=== PATIENT | male | born 1965 | race African-American/Black ===

== ENCOUNTER 2024-09-01 12:01 | Outpatient (REF) | payer MEDICAID, SELFPAY ==
--- OUTSIDE RECORDS SUMMARY | 2024-09-01 12:58 | XMS_ITS | Encounter Summary ---
Author Organization [facility] Address [address] [place] [id number] Care Team Providers Care School Community Relations Coordinator Name Role Phone Cassandra Vega MD Primary Care Provider + Encounter Details Date Type Department Care Team (Latest Contact Info) Description 09/01/2024 Travel Social History Tobacco Use Types Packs/Day Years Used Date Smoking Tobacco: Never Passive Smoke Exposure: Never Smokeless Tobacco: Never Sex and Gender Information Value Date Recorded Sex Assigned at Male 08/27/2024 11:49 AM EDT Legal Sex Male 11:25 AM EDT Gender Identity Male 08/27/2024 11:49 AM EDT Sexual Orientation Straight 09/01/2024 9: 23 AM EDT documented as of this encounter Plan of Treatment Upcoming Encounters Date Type Department Care Team (Late st Contact Info) Description 10/02/2024 10:45 AM EDT Office Visit [facility] [address] [place] [address] Cassandra Vega MD [address] [place] [address] documented as of this encounter Visit Diagnoses Not on filedocumented in this encounter Care Teams School Community Relations Coordinator Relationship Specialty Start Date End Date Cassandra Vega MD [address] [place] [id number] PCP - General Internal Medicine 09/01/24 documented as of this encounter
--- OUTSIDE RECORDS SUMMARY | 2024-09-01 12:58 | XMS_ITS | Clinical Summary ---
Author Organization [facility] Address [address] [place] [address] Care Team Providers Care Digital Research Analyst Name Role Phone Thi Simi Fracnes NP Primary Care Provider [phone] Source Comments PLEASE NOTE, if this patient is a minor, it may be UNLAWFUL to discuss sensitive information that is contained in these records (such as FAMILY PLANNING, MENTAL HEALTH or SUBSTANCE ABUSE) with the minor patient's parent or other person without the patient's specific authorization.[facility] Allergies No known active allergies Medications metFORMIN (GLUCOPHAGE) 500 mg tablet Take 1 Tablet by mouth 2 (two) times daily with a meal 60 Tablet 11 5 Active lidocaine (LIDODERM) 5 % patch Place 1 Patch onto the skin daily 5 Active acetaminophen (TYLENOL) 325 mg tablet Take 650 mg by mouth every 6 (six) hours as needed 5 Active calcium carbonate (TUMS) 500 mg chewable tabletIndicatio ns:Gastroesopha geal reflux disease without esophagitis Chew and swallow 1 Tablet by mouth daily 5 Active fluticasone (FLONASE) 50 mcg/actuation nasal sprayIndication s:Hearing difficulty of both ears Place 1 [place] in both nostrils 2 (two) times daily 16 g 5 5 Active omeprazole (PRILOSEC) [address] capsuleIndicati ons:Gastroesoph ageal reflux disease without esophagitis Take 1 Capsule by mouth every morning before breakfast Pran 1 kapsil nan bouch megank aldair givens. Andres rflu 30 Capsule 5 5 Active melatonin 5 mg tab Take 1 Tablet by mouth every evening. 30 Tablet 11 5 Active lisinopriL-hydr ochlorothiazide 10-12.5 mg per tablet Take 1 Tablet by mouth once daily. 30 Tablet 11 5 Active rosuvastatin (CRESTOR) 10 mg tablet Take 1 Tablet by mouth nightly at bedtime. 30 Tablet 11 5 Active rifAMPin (RIFADIN) 300 mg capsule Take 1 Capsule by mouth once daily. 60 Capsule 3 5 Active lisinopriL 10 mg tablet Take 1 Tablet by mouth once daily 30 Tablet 11 5 08/08/19 25 Discontinu ed(Cancell ed) rosuvastatin (CRESTOR) 10 mg tabletIndicatio ns:Type 2 diabetes mellitus without complication, without long-term current use of insulin ([facility]),Stage 2 chronic kidney disease TAKE 1 TABLET BY MOUTH AT BEDTIME 30 Tablet 5 08/08/19 25 Discontinu ed(Reorder (E-Cancel Not Sent)) Active Problems Problem Noted Date Diagnosed Date Primary insomnia 08/07/2024 Assessment & Plan (08/07/2024 11:20 AM EDT): Likely due to fdc setting, will trial melatonin but noise/light may not be modifiable 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 Will evaluate further with labs below, continue to discuss. Orders: BLOOD COUNT COMPLETE AUTO&AUTO DIFRNTL WBC; Future TSH W/RFLX FREE T4; Future + quant gold, - CXR 05/05/24 --> needs tx 025 Assessment & Plan (08/07/2024 11:18 AM EDT): Start rifampin 600mg daily for 4 months Assessment & Plan (06/20/2024 1:27 PM EDT): Lab Results Component Value Date QUANTIFERON POSITIVE (A) 04/08/2024 05/05/2024 12:08 PM EDT No radiographic findings to suggest active tuberculosis. Discussed CXR as above. No active sx today; will hold off on treating until get other meds established with adherence. Assessment & Plan (05/04/2024 3:13 PM EDT): Lab Results Component Value Date QUANTIFERON POSITIVE (A) 04/08/2024 Lab not previously discussed with pt. Sx screen as above w/ no acute concerns for active dz. No prior tx of Tb or knowledge of + screening tests. CXR req given to pt today with instructions to obtain at [facility]. Review further after CXR results known. Orders: RADIOLOGIC EXAM CHEST 2 VIEWS Hearing difficulty of both ears 05/02/2024 Assessment & Plan (05/04/2024 3:13 PM EDT): More left than right. Has been present for about a year. Never evaluated to his knowledge. Effusion bilaterally, more L than R. Trial flonase for ET dysfunction. Audiology referral. Blurry vision, bilateral 05/02/2024 Assessment & Plan (05/04/2024 3:13 PM EDT): Wore glasses for correction both distance and near, last had a pair about 2 years ago. Had previous injury to L eye in 2017. CM to assist with referral. Stage 2 chronic kidney disease 04/14/2024 Assessment & Plan (06/20/2024 1:27 PM EDT): Will obtain labs today, initiate treatment with statin; provided pt with pill box to support daily adherence. Orders: rosuvastatin (CRESTOR) 10 mg tablet; Take 1 Tablet by mouth nightly at bedtime for 30 days Pran 1 tablet cliff nelson 30 kim, andres kolestewol COMPREHENSIVE METABOLIC PANEL Assessment & Plan (05/04/2024 3:13 PM EDT): Will need labs at next visit. Consider imaging. Orders: COMPREHENSIVE METABOLIC PANEL; Future Assessment & Plan (04/14/2024 2:03 PM EST): Could be related to a combo of DM and HTN. Avoid nephrotoxic meds such as ibuprofen--start lisinopril which might ultimately be renoprotective. UA ordered. Consider renal US. F/u at [facility]. Type 2 diabetes mellitus wit hout complication, without long-term current use of insulin ([facility]) 04/14/2024 Assessment & Plan (06/20/2024 1:27 PM EDT): Pt supposed to be on metformin, currently taking it PRN pain. Counseled pt extensively regarding use of medication and indication; reprinted instructions for medication in [place] [facility] cre[facility] and provided pt with pill box to support daily adherence. Assessment & Plan (05/02/2024 12:15 PM EDT): Unclear if pt is taking metformin, advised to bring pills to clinic on 05/12. Assessment & Plan (04/14/2024 2:04 PM EST): FS essentially at target but would likely benefit from metformin. Low dose sent. Microalbumin ordered. Can f/u for further management at [facility]. Neck pain on right side 04/14/2024 Assessment & Plan (04/14/2024 2:10 PM EST): Possibly a pulled muscle vs muscle strain. Activity as tolerated, PRN tylenol Primary hypertension 04/07/2024 Assessment & Plan (08/07/2024 11:18 AM EDT): Given persistent HTN will change lisinopril to combo lisinopril+HCTZ, titrate as needed, f/u in 4 weeks Assessment & Plan (06/20/2024 1:27 PM EDT): Last 3 BP Readings: Date: BP: 06/16/2024 136/84 05/02/2024 144/87 04/14/2024 142/85 Taking lisinopril daily as advised, measuring BP at home with values: 120-155/80-91. Continue to monitor. Assessment & Plan (05/04/2024 3:13 PM EDT): Consistent with meds, refer to [facility] community care van today for BP cuff and further discussion. Consider med increase at upcoming appt 05/12, needs labs. Orders: COMPREHENSIVE METABOLIC PANEL; Future Assessment & Plan (04/14/2024 1:57 PM EST): Will treat with lisinopril 10 (may be renoprotective even with GFR 57 now) but would be reasonable to check CMP again in 2 weeks Assessment & Plan (04/07/2024 1:59 PM EST): BP borderline high, could be related to stressful setting here. Can recheck tomorrow at [facility] and again next week here. Will get routine labs Sheltered homelessness 04/07/2024 Assessment & Plan (06/20/2024 1:27 PM EDT): Continues in [place]. Transportation provided to clinic today by fdc. Assessment & Plan (05/04/2024 3:13 PM EDT): Homelessness for this patient is a strong social determinant of health and affecting current presentation and treatment decisions as outlined in this note. Assessment & Plan (04/07/2024 2:00 PM EST): Staying at a fdc in [place] which is a barrier to care GERD (gastroesophageal reflux disease) Assessment & Plan (06/20/2024 1:27 PM EDT): Never got tums. Food choice limited by fdc food. Previously tested for h. Pylori and negative (04/08/24). Will initiate treatment with omeprazole today, given instructions on use 15 min before first meal of the day. Anti-acid diet/lifestyle modifications reviewed: dietary guidance includes avoiding fatty/spicy foods, large/late meals, alcohol, tobacco, caffeine, OJ, pasta sauces, chocolates, and mints; lifestyle guidance includes maintaining a healthy weight, avoid eating within 1-2 hours of bedtime, elevate head at night. Reasons to RTC reviewed. Consider referral for EGD at f/u. Assessment & Plan (05/04/2024 3:13 PM EDT): Continues with some pain, fatigue feeling. Sometimes takes tums from ER. Recalls taking ivermectin, albendazole on 04/14/24. Advised to keep journal of pain to review 05/12. 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 F/u at [facility] Assessment & Plan (04/07/2024 2:01 PM EST): Will check h pylori test, if negative consider empiric treatment for GERD Resolved Problems Problem Noted Date Diagnosed Date Resolved Date Chronic left shoulder pain 04/07/2024 0 04/14/2024 Assessment & Plan (04/07/2024 2:00 PM EST): Symptoms and exam consistent with rotator cuff injury. Longterm setting in [place] makes PT impractical. I suggested he stretch and exercise on his own as best he can. PRN tylenol (avoid ibuprofen due to GI symptoms). F/u next week Encounters Date Type Department Care Team Description 08/07/2024 10:00 AM EDT Office Visit [address] [phone] Carlos Herrera MD 08/07/2024 Interim Notes [address] [phone] Gricelda Atkins, Nut Sorter 08/01/2024 Interim Notes [address] [phone] Gricelda Atkins, Nut Sorter 07/11/2024 Interim Notes [address] [phone] Alta Gomez 06/16/2024 9:30 AM EDT Office Visit [address] [phone] Simi Ness NP from Last 3 Months Immunizations Immunization Administration Dates Next Due PNEUMOCOCCAL CONJUGATE PCV 20 (Prevnar 20) 08/07 TDAP 08/07/2024 ZOSTER VACCINE, RECOMBINANT (SHINGRIX) Social History Tobacco Use Types Packs/Day Years Used Date Smoking Tobacco: Never Passive Smoke Exposure: Never Smokeless Tobacco: Never Tobacco Cessation:Counseling Given: Not Answered Sex and Gender Information Value Date Recorded Sex Assigned at Male 08/07/2024 8:52 AM PDT Legal Sex Male 10:27 AM PST Gender Identity Male 08/07/2024 8:52 AM PDT Sexual Orientation Not on file Last Filed Vital Signs Vital Sign Reading Time Taken Comments Blood Pressure 155/90 08/07/2024 10:38 AM EDT Pulse 57 08/07/2024 10:38 AM EDT Temperature 36.4 C (97.6 F) 08/07/2024 10:38 AM EDT Respiratory Rate 16 08/07/2024 10:38 AM EDT Oxygen Saturation 98% 08/07/2024 10:38 AM EDT Inhaled Oxygen Concentration - - Weight 88 kg (194 lb) 08/07/2024 10:38 AM EDT Height 168.9 cm (5' 6.5 ) 08/07/2024 10:38 AM ED T Body Mass Index 30.84 08/07/2024 10:38 AM EDT Plan of Treatment Upcoming Encounters Date Type Department Care Team (Late st Contact Info) Description 09/08/2024 3:00 PM EDT Office Visit [address] [phone] Simi Ness NP [address] [place] [id number] Health Maintenance Due Date Last Done Comments Dental Examination 1965 Diabetes Foot Exam [address]in[address] Colonography 2009 Colonoscopy 2009 Fecal DNA 2009 Flexible Sigmoidoscopy 2009 [id number] ( season) 2023 Alcohol and Drug Screen 02/13/2024 Imm-Zoster, Recombinant (2 o f 2) 10/02/2024 08/07/2024 Imm-Influenza (#1) 2024 Hemoglobin A1c 12/17/2024 06/16/2024, 04/08/2024 Lipid Screening 04/08/2025 04/08/2024 Urine Albumin Creatinine Ratio Screening 04/15/2025 04/15/2024 Colorectal Cancer Screening 06/16/2025 FIT/gFOBT 06/16/2025 06/16/2024 Serum Creatinine 06/16/2025 06/16/2024, 04/08/2024 Anxiety Screening 08/07/2025 08/07/2024 Tobacco Screening 08/07/2025 08/07/2024 Imm-DTaP/Tdap/Td (2 - Td or Tdap) 08/07/2034 08/07/2024 HIV Screening Completed 04/08/2024 Hepatitis B Screening Completed 04/08/2024 Hepatitis C Screening Completed 04/08/2024 Depression Annual Screen Completed 06/16/2024 Imm-Pneumococcal 50+ Completed 08/07/2024 Imm-Hepatitis A Discontinued Imm-Hepatitis B Aged Out No longer el igible based on patient's age to complete this topic Procedures Procedure Name Priority Date/Time Associated Diagnosis Comments HEMOGLOBIN GLYCOSYLATED A1C Routine 06/16/2024 12:40 PM EDT Type 2 diabetes mellitus without complication, without long-term current use of insulin ([facility]) BLOOD COUNT COMPLETE AUTO&AUTO DIFRNTL WBC Routine 06/16/2024 12:40 PM EDT Other fatigue TSH W/RFLX FREE T4 Routine 06/16/2024 12 :40 PM EDT Other fatigue COMPREHENSIVE METABOLIC PANEL Routine 06/16/2024 12:40 PM EDT Primary hypertension Stage 2 chronic kidney disease FECAL GLOBIN BY IMMUNOCHEM (MEDICARE) Routine 06/16/2024 12:10 PM EDT Routine health maintenance MICROALBUMIN/CREATINI NE RATIO, URINE, RANDOM Routine 04/15/2024 3:22 PM EST Type 2 diabetes mellitus without complication, without long-term current use of insulin ([facility]) HIV 1/2 AG & AB W/RFLX (4TH GEN) Routine 04/08/2024 9:32 AM EST Encounter for screening for HIV HEPATITIS B SURFACE AG, EIA WITH REFLEX CONFIRM Routine 04/08/2024 9:32 AM EST Encounter for screening for other viral diseases HEPATITIS C AB W/RFLX HCV RNA, QT, RT PCR Routine 04/08/2024 9:32 AM EST Encounter for screening for other viral diseases LIPID PANEL Routine 04/08/2024 9:32 AM EST Primary hypertension from Last 3 Months or Most Recently Relevant to Health Maintenance Results * TSH W/RFLX FREE T4 (06/16/2024 12:40 PM EDT) TSH W/REFLEX TO FT4 0.87 0.40 - 4.50 mIU/L [facility] Blood Blood / Unknown 06/16/2024 1 2:40 PM EDT 06/17/2024 4:46 AM EDT us Simi Ness NP LAB - BLOOD DRAW Edited Reena gamez - Final [employer] [address] [place] [address], [facility] [address] [place] [phone] * CBC with Diff (06/16/2024 12:40 PM EDT) WHITE BLOOD CELL COUNT 6.0 3.8 - 10.8 Thousand/ uL [facility] RED BLOOD CELL COUNT 5.37 4.20 - 5.80 Million/u L [facility] HEMOGLOBIN 15.0 13.2 - 17.1 g/dL [facility] HEMATOCRIT 46.6 38.5 - 50.0 % [facility] MCV 86.8 80.0 - 100.0 fL [facility] MCH 27.9 27.0 - 33.0 pg [facility] MCHC 32.2 32.0 - 36.0 g/dL [facility] Comment: For adults, a slight decrease in the calculated MCHC value (in the range of 30 to 32 g/dL) is most likely not clinically significant; however, it should be interpreted with caution in correlation with other red cell parameters and the patient's clinical condition. RDW 12.8 11.0 - 15.0 % [facility] PLATELET COUNT 194 140 - 400 Thousand/ uL [facility] MPV 12.1 7.5 - 12.5 fL [facility] ABSOLUTE NEUTROPHILS 3,282 1,500 - 7,800 cells/uL [facility] ABSOLUTE LYMPHOCYTES 1,962 850 - 3,900 cells/uL [facility] ABSOLUTE MONOCYTES 624 200 - 950 cells/uL [facility] ABSOLUTE EOSINOPHILS 90 15 - 500 cells/uL [facility] ABSOLUTE BASOPHILS 42 0 - 200 cells/uL [facility] NEUTROPHILS PCT 54.7 % [facility] LYMPHOCYTES 32.7 % [facility] MONOCYTES 10.4 % [facility] [employer] EOSINOPHILS 1.5 % [facility] [employer] BASOPHILS 0.7 % [facility] [employer] [facility] Blood Blood / Unknown 06/16/2024 1 2:40 PM EDT 06/17/2024 4:46 AM EDT Simi Ness NP LAB - BLOOD DRAW Edited Re sult - [facility] [employer] [address] [address], [facility] [address] [place] [address] * (ABNORMAL) Hemoglobin A1C (06/16/2024 12:40 PM EDT) HEMOGLOBIN A1C 6.7(H) <5.7 % [facility] Comment: For someone without known diabetes, a hemoglobin A1c value of 6.5% or greater indicates that they may have diabetes and this should be confirmed with a follow-up test. For someone with known diabetes, a value <7% indicates that their diabetes is well controlled and a value greater than or equal to 7% indicates suboptimal control. A1c targets should be individualized based on duration of diabetes, age, comorbid conditions, and other considerations. Currently, no consensus exists regarding use of hemoglobin A1c for diagnosis of diabetes for children. Blood Blood / Unknown 06/16/2024 1 2:40 PM EDT 06/17/2024 4:46 AM EDT us Simi Ness NP LAB - BLOOD DRAW Edited Re sult - Final [facility] [address] [address], [facility] [address] [place] [address] * (ABNORMAL) Comprehensive Metabolic Panel (06/16/2024 12:40 PM EDT) Pathologist [facility] GLUCOSE 93 65 - 99 mg/dL [facility] Comment: Fasting reference interval UREA NITROGEN (BUN) 11 7 - 25 mg/dL [facility] CREATININE (blood) 1.35(H) 0.70 - 1.30 mg/dL [facility] EGFR 60 > OR = 60 mL/min/1. 73m2 [facility] BUN/CREATININE RATIO 8 6 - 22 (calc) [facility] SODIUM 136 135 - 146 mmol/L [facility] POTASSIUM 4.8 3.5 - 5.3 mmol/L [facility] CHLORIDE 100 98 - 110 mmol/L [facility] CARBON DIOXIDE 27 20 - 32 mmol/L [facility] CALCIUM 9.5 8.6 - 10.3 mg/dL [facility] PROTEIN, TOTAL 7.5 6.1 - 8.1 g/dL [facility] ALBUMIN 4.4 3.6 - 5.1 g/dL [facility] GLOBULIN 3.1 1.9 - 3.7 g/dL (calc) [facility] ALBUMIN/GLOBULI N RATIO 1.4 1.0 - 2.5 (calc) [facility] BILIRUBIN, TOTAL 0.6 0.2 - 1.2 mg/dL [facility] ALKALINE PHOSPHATASE 72 35 - 144 U/L [facility] AST 17 10 - 35 U/L [facility] ALT 22 9 - 46 U/L [facility] Blood Blood / Unknown 06/16/2024 1 2:40 PM EDT 06/17/2024 4:46 AM EDT us Simi Ness FINANCIAL SERVICES SALES REPRESENTATIVE LAB - BLOOD DRAW Final Res ult Performing Organization Address City/[facility]/ZIP Co de Phone Number [facility] [address] [address], [employer] [address] [address] * FECAL GLOBIN BY IMMUNOCHEM. (MEDICARE) (06/16/2024 12:10 PM EDT) FECAL GLOBIN BY IMMUNOCHEMISTRY See Note [facility] Comment: FECAL GLOBIN BY IMMUNOCHEMISTRY Micro Number: [id number] Test Status: Final Specimen Source: Insure () fobt test card Specimen Quality: Adequate Fecal Globin: Not Detected Reference Range: Not Detected Comment: Test results may be invalid as no date of collection was provided. Specimens are stable for 14 days. NOTE: Approved collection includes sample of toilet water adjacent to stool. Other methods of collection such as stool transferred from diaper, bedpan, or commode to toilet water may lead to inaccurate results. Stool Stool specimen / Unknown 06/16/2024 12:10 PM EDT 06/17/2024 9:21 PM EDT us Simi Ness FINANCIAL SERVICES SALES REPRESENTATIVE LAB BODY FLUIDS AND STOOLS AMBULATORY Final Result Performing Organization Address City/[facility]/ZIP Co de Phone Number [facility] [address] [address], [employer] [address] [address] * MICROALBUMIN, RANDOM URINE (W/CREATININE) (04/15/2024 3:22 PM EST) CREATININE, RANDOM URINE 103 20 - 320 mg/dL [facility] MICROALBUMIN 0.3 mg/dL [facility] Comment: Reference Range Not established MICROALBUMIN/CREA TININE RATIO, RANDOM URINE 3 <30 mg/g creat [facility] Comment: The ADA defines abnormalities in albumin excretion as follows: Albuminuria Category Result (mg/g creatinine) Normal to Mildly increased <30 Moderately increased 30-299 Severely increased > OR = 300 The ADA recommends that at least two of three specimens collected within a 3-6 month period be abnormal before considering a patient to be within a diagnostic category. Urine Urine specimen / Unknown 04/15/2024 3:22 PM EST 04/16/2024 3:01 PM EST us Carlos Herrera MD LAB URINE AMBULATORY Final Re sult Performing Organization Address [facility] de Phone Number [facility] [address] [address], [facility] [address] [address] * HEPATITIS C AB W/REFL TO HCV RNA, QN, PCR (04/08/2024 9:32 AM EST) HEPATITIS C ANTIBODY NON-REACT RADHA NON-REACT RADHA [facility] Comment: HCV antibody was non-reactive. There is no laboratory evidence of HCV infection. In most cases, no further action is required. However, if recent HCV exposure is suspected, a test for HCV RNA (test code 21886) is suggested. For additional information please refer to http://education.Captora/faq/AXN18g0 (This link is being provided for informational/ educational purposes only.) Blood Blood / Unknown 04/08/2024 9 :32 AM EST 04/09/2024 12:45 AM EST us Carlos Herrera MD LAB - BLOOD DRAW Edited Resul t - Final Performing Organization Address [facility] Co de Phone Number [facility] [address] [address], [employer] [address] [address] * HIV 1/2 ANTIGEN/ANTIBODY,FOURTH GENERATION W/RFL (04/08/2024 9:32 AM EST) HIV AG/AB, 4TH GEN NON-REAC TIVE NON-REAC TIVE [facility] Comment: HIV-1 antigen and HIV-1/HIV-2 antibodies were not detected. There is no laboratory evidence of HIV infection. PLEASE NOTE: This information has been disclosed to you from records whose confidentiality may be protected by state law. If your state requires such protection, then the state law prohibits you from making any further disclosure of the information without the specific written consent of the person to whom it pertains, or as otherwise permitted by law. A general authorization for the release of medical or other information is NOT sufficient for this purpose. For additional information please refer to http://Wellkeeper.Captora/faq/DJR111 (This link is being provided for informational/ educational purposes only.) The performance of this assay has not been clinically validated in patients less than 2 years old. Blood Blood / Unknown 04/08/2024 9 :32 AM EST 04/09/2024 12:45 AM EST us Carlos Herrera MD LAB - BLOOD DRAW Final Result Performing Organization Address City/State/[facility] Co de Phone Number [facility] [address] [address], [facility] [address] [address] * HEPATITIS B SURFACE ANTIGEN W/REFL CONFIRM (04/08/2024 9:32 AM EST) HEPATITIS B SURFACE ANTIGEN NON-REACT RADHA NON-REACT RADHA [facility] COMMENT [facility] Blood Blood / Unknown 04/08/2024 9 :32 AM EST 04/09/2024 12:45 AM EST Narrative [facility] - 04/14/2024 6:33 PM EST For additional information, please refer to http://Wellkeeper.xoompark.ClearFlow/faq/QXG973 (This link is being provided for informational/ educational purposes only.) us Carlos Herrera MD LAB - BLOOD DRAW Edited Resul t - Final [facility] [address] [address], [facility] [address] [address] * (ABNORMAL) Lipid Panel (04/08/2024 9:32 AM EST) CHOLESTEROL, TOTAL 189 <200 mg/dL [facility] HDL CHOLESTEROL 39(L) > OR = 40 mg/dL [facility] TRIGLYCERIDES 206(H) <150 mg/dL [facility] Comment: If a non-fasting specimen was collected, consider repeat triglyceride testing on a fasting specimen if clinically indicated. Franny et al. J. of Clin. Lipidol. 2015;9:129-169. LDL-CHOLESTEROL 118(H) 99 mg/dL (calc) [facility] Comment: Reference range: <100 Desirable range <100 mg/dL for primary prevention; <70 mg/dL for patients with CHD or diabetic patients with > or = 2 CHD risk factors. LDL-C is now calculated using the Keron-Ana calculation, which is a validated novel method providing better accuracy than the Friedewald equation in the estimation of LDL-C. Keron SS et al. JOHANNA. 2013;310(19): 8134-7375 (http://education.Orthocon/faq/VEW574) CHOL/HDLC RATIO 4.8 <5.0 (calc) [facility] NON-HDL CHOLESTEROL 150(H) <130 mg/dL (calc) [facility] Comment: For patients with diabetes plus 1 major ASCVD risk factor, treating to a non-HDL-C goal of <100 mg/dL (LDL-C of <70 mg/dL) is considered a therapeutic option. Blood Blood / Unknown 04/08/2024 9 :32 AM EST 04/09/2024 12:45 AM EST us Carlos Herrera MD LAB - BLOOD DRAW Final Result Performing Organization Address [facility]/ZIP Co de Phone Number [facility] [facility] [address] [id number], [place] [address] [id number] from Last 3 Months or Most Recently Relevant to Health Maintenance Insurance [facility] Care Teams Digital Research Analyst Relationship Specialty Start Date End Date Simi Ness NP [address] [place] [id number] PCP - General FINANCIAL SERVICES SALES REPRESENTATIVE Nurse Practitioner 06/20/24
[2024-09-01 12:59] LABS: MANUAL DIFF FLAG NO
[2024-09-01 13:10] LABS: Hematocrit 46.3 % (42.0-52.0); Hemoglobin 15.0 g/dl (14.0-18.0); Imm Gran Abs Auto 0.02 X10*3/uL (0.00-0.03); Imm Gran Pct Auto 0.3 % (0.0-0.4); Lymphocytes Absolute Auto 1.8 X10*3/uL (1.2-4.9); Mean Corpuscular HGB Conc 32.4 g/dl (31.0-36.0); Mean Corpuscular Hemoglobin 27.8 pg (27.0-33.0); Mean Corpuscular Volume 85.9 fL (80.0-98.0); NRBC Abs Auto 0.020 X10*3/uL (0.0-0.012); NRBC Pct Auto 0.3 /100WBC (0.0-0.2); Platelet Count 163 X10*3/uL (160-400); Red Blood Count 5.39 X10*6/uL (4.60-5.80); White Blood Count 5.7 X10*3/uL (4.8-10.8)
[2024-09-01 13:22] LABS: Hemoglobin A1C 206.7885 umol/L; Total Hemoglobin (HGBA1C) 3880.9457 umol/L
[2024-09-01 13:35] LABS: Alanine Aminotransferase 39 U/L (0-40); Albumin Level 4.8 g/dL (3.5-5.0); Alkaline Phosphatase 92 U/L (39-117); Anion Gap 12 (12-20); Aspartate Amino Transferase 23 U/L (5-37); Blood Urea Nitrogen 15 mg/dL (9-16); Calcium 8.9 mg/dL (8.4-10.2); Carbon Dioxide 29 mmol/L (22-29); Chloride 105 mmol/L (96-108); Estimated Glomerular Filt Rate 53; Potassium 4.1 mmol/L (3.3-5.1); Sodium 142 mmol/L (135-145); Total Protein 7.8 g/dL (6.5-8.0)
[2024-09-01 14:39] LABS: Microalbum/Creatinine Ratio Ur 3.6 ug/mg cr (<30)
[2024-09-02 08:23] LABS: Syphilis Screen Nonreactive (Nonreactive)
[2024-09-02 08:42] LABS: HBS Num1 0.58 mIU/mL (0-7.99); HBc Num1 0.18 S/CO (0.00-0.79); HBsAGNum1 0.40 S/CO (0.00-0.99); Hepatitis A Antibody IgM 0.31 Index (0-0.79); Hepatitis B Surface Antigen Negative (Negative); ~HepC Num1 0.17 S/CO (0.00-0.79); ~Hepatitis A Antibody IgM Nonreactive (Nonreactive); ~Hepatitis B Surface Antibody NONREACTIVE (Nonreactive); ~Hepatitis C Antibody Nonreactive (Nonreactive)
== END 2024-09-01 12:02 | disposition home or self-care (01) ==
LOC: HO.HHCL 12:01
PROVIDERS: Visit Provider Internal Medicine
DX: E11.9 Type 2 diabetes mellitus without complications (principal); I10 Essential (primary) hypertension; H54.3 Unqualified visual loss, both eyes
CPT/HCPCS: 36415; 80053; 82043; 82570; 83036; 84443; 85025; 86704; 86706; 86709; 86780; 86803; 87340

== ENCOUNTER 2024-12-05 11:48 | Outpatient (REF) | payer MEDICAID, SELFPAY ==
--- OUTSIDE RECORDS SUMMARY | 2024-12-05 10:45 | XMS_ITS | Encounter Summary ---
Author Organization [employer] Address [address] [facility] [address] [place] [address] Care Team Providers Care Drilling Manager Name Role Phone Cassandra Vega MD Primary Care Provider + Reason for Visit * Reason Comments Establish Care Encounter Details Date Type Department Care Team (Latest Contact Info) Description 12/05/2024 10:45 AM EDT Office Visit [facility] [address] [place] [address] Cassandra Vega MD [address] [place] [address] Primary hypertension (Primary Dx); Type 2 diabetes mellitus without complication, without long-term current use of insulin (HCC); Diabetic polyneuropathy associated with type 2 diabetes mellitus (HCC); Class 1 obesity due to excess calories with serious comorbidity and body mass index (BMI) of 30.0 to 30.9 in adult; Latent tuberculosis; Tinea pedis of left foot; Exercise counseling; Dietary counseling; Encounter for immunization Social History Tobacco Use Types Packs/Day Years Used Date Smoking Tobacco: Never Passive Smoke Exposure: Never Smokeless Tobacco: Never Tobacco Cessation:Counseling Given: Not Answered Alcohol Use Standard Drinks/Week Comments Never 0 (1 standard drink = 0.6 oz pur e alcohol) Depression Answer Date Recorded Patient Health Questionnaire-9 Score 2 12/05/2024 Patient Health Questionnaire-9 Score 2 12/05/2024 Last PHQ-9: Questionnaire Data Not on file 1 Housing Stability Answer Date Recorded What is your housing situation today? I have anjana kim 12/05/[address] you li ve. Do you have problems with any of the following? None of the above 12/05/2024 Food Insecurity Answer Date Recorded Within the past 12 months, y ou worried that your food would run out before you got money to buy more: Never True 12/05/2024 Within the past 12 months,th e food you bought just didn't last and you didn't have enough money to get more: Never True Transportation Answer Date Recorded In the past 12 months, has l ack of transportation kept you from medical appts, meetings, work or from getting things needed for daily living? No 12/05/2024 Utilities Answer Date Recorded In the past 12 months, has t he electric, gas, oil or water company threatened to shut off services in your home? No 12/05/2024 Depression Answer Date Recorded Patient Health Questionnaire-2 Score 2 12/05/2024 Internet Access Answer Date Recorded Internet Access Q1 Yes 12/05/2024 Internet Access Q2 Not on file 12/05/2024 Sex and Gender Information Value Date Recorded Sex Assigned at Male 08/27/2024 11:49 AM EDT Legal Sex Male 11:25 AM EDT Gender Identity Male 08/27/2024 11:49 AM EDT Sexual Orientation Straight 09/01/2024 9: 23 AM EDT documented as of this encounter Last Filed Vital Signs Vital Sign Reading Time Taken Comments Blood Pressure 138/88 12/05/2024 10:56 AM EDT Pulse 86 12/05/2024 10:56 AM EDT Temperature 36.2 C (97.1 F) 12/05/2024 10:56 AM EDT Respiratory Rate 20 12/05/2024 10:56 AM EDT Oxygen Saturation - - Inhaled Oxygen Concentration - - Weight 86.3 kg (190 lb 3.2 oz) 12/05/2024 10:56 AM EDT Height 168 cm (5' 6.14 ) 12/05/2024 10:56 AM EDT Body Mass Index 30.57 12/05/2024 10:56 AM EDT documented in this encounter Functional Status * Over the past 2 weeks, how often have you been bothered by any of the following problems? Question Answer Date of Assessment Author Patient Health Questionnaire-2 Score 2 12/05/2024 10:57 AM EDT Lalitha Joy MA * Little interest or pleasure in doing things Answer Date of Assessment Author Several days 12/05/2024 10:57 AM EDT Lalitha Farias MA * Feeling down, depressed, or hopeless Answer Date of Assessment Author Several days 12/05/2024 10:57 AM EDT Lalitha Farias MA * Trouble falling or staying asleep, or sleeping too much Answer Date of Assessment Author Not at all 12/05/2024 10:57 AM EDT Lalitha Farias MA * Feeling tired or having little energy Answer Date of Assessment Author Not at all 12/05/2024 10:57 AM EDT Lalitha Farias MA * Poor appetite or overeating Answer Date of Assessment Author Not at all 12/05/2024 10:57 AM EDT Lalitha Farias MA * Feeling bad about yourself - or that you are a failure or have let yourself or your family down Answer Date of Assessment Author Not at all 12/05/2024 10:57 AM EDT Lalitha Farias MA * Trouble concentrating on things, such as reading the newspaper or watching television Answer Date of Assessment Author Not at all 12/05/2024 10:57 AM ANNALISAT Lalitha Farias MA * Moving or speaking so slowly that other people could have noticed? Or the opposite - being so fidgety or restless that you have been moving around a lot more than usual. Answer Date of Assessment Author Not at all 12/05/2024 10:57 AM EDLalitha Barajas MA * Thoughts that you would be better off or hurting yourself in some way Answer Date of Assessment Author Not at all 12/05/2024 10:57 AM EDT Lalitha Farias MA * Patient Health Questionnaire-9 Score Answer Date of Assessment Author 2 12/05/2024 10:57 AM Lalitha Rivera MA * How difficult have these problems made it for you to do your work, take care of things at home, or get along with other people? Answer Date of Assessment Author Not difficult at all 12/05/2024 10:57 AM EDT Adebayo riguez-Sher, Lalitha, [place] * Over the last 2 weeks, how often have you been bothered by any of the following problems? Question Answer Date of Assessment Author Feeling nervous, anxious, or on edge 0 12/05/2024 10:57 AM EDT Lalitha Estrada MA Not being able to stop or control worrying 0 12/05/2024 10:57 AM EDT Lalitha Estrada MA Worrying too much about different things 0 12/05/2024 10:57 AM EDT Lalitha Estrada MA Trouble relaxing 0 12/05/2024 10:57 AM EDT Lalitha Estrada MA Being so restless that it is hard to sit still 0 12/05/2024 10:57 AM EDT Lalitha Estrada MA Becoming easily annoyed or irritable 0 12/05/2024 10:57 AM EDT Lalitha Estrada MA Feeling afraid as if something awful might happen 0 12/05/2024 10:57 AM EDT Lalitha Sanchez MA HAIR-7 Total Score 0 12/05/2024 10:57 AM EDT Lalitha Estrada MA documented as of this encounter Miscellaneous Notes * Patient Education Note - Cassandra Vega MD - 12/05/2024 3:33 PM EDT Images from the original note were not included. Patient Education Table of Contents Paola hood (Ip?tansyon) cliff astudillo: Sa valorie pozo (High Blood Pressure (Hypertension) in Adults: What to Know) To view videos and all your education online visit, [email or web address] or scan this QR code with your smartphone. Access to this content will in one year. Tansyelva wo (Ip?tansyon) cliff baldwinmoun: Sa valorie pozo High Blood Pressure (Hypertension) in Adults: What to Know Rodrigosyon wo (ip?tansyon) se l?? f?s patton ponpe nan at?? timoun ou an tw?? f?. Tansyon wo (Ip?tansyon)nan granmoun: Sa ou dwe konnen At?? yo se veso sangen ki pran patton depi nan k?? w andres mennen li nan tout k?? ou. Si ou gen tansyon wo, k?? ou oblije travay pi r?d andres ponpe patton. Sa ka lak?z at?? yo esha etwat oswar?d. Tansyon wo ka lak?z yon rodney kadyak, ensifizans kadyak, yon konjesyon serebral, oswa menm maladi jarrod. Kelin ki lak?z li? Nan s?ten ka, yo pa konnen k?z la. Men, gen anpil pwobl?m sante ki ka lak?z tansyon wo. Kelin malone ogmante risk la? Ou ka gen plis chans andres gen tansyon wo si: Ou pi granmoun. Ou gen yon istwa de: ? Maladi k?. ? Kolestew?l wo. ? Maladi jarrod. Ou gen anpil estr?s nan nelli w. Yon moun nan fanmi ou gen tansyon wo. Ou gen apne d?mi. Ou gen tw?p pwa. Ou ka gen plis chans andres gen tansyon wo akshat si: Ou fimen. Ou pa jwenn ase egz?sis. Ou manje epi ou bw?? tw?p gr?s, sik, kalori, oswa s?l (sody?m). Ou bw?? tw?p alk?l. Kelin siy oswa sent?m yo ye? Nan k?k ka, ou ka pa gen sent?m. Men, plis tansyon ou wo, se plis chans ou genyen andres gen sent?m yo. Sa yo gen demi: Malt?t. Batman k?? rapid oswa inegal. Mis v?tij. Chanjman nan vizyon ou. Nen senyen. Doul?? nan pwatrin ak sansasyon souf kout. Vomi oswa mis tankou w ka vomi. Lindsay yo f?? dyagnostik li? Yo ka dyagnostike w dapre istwa sante w, sent?m ou yo, ak lekti tansyon w. Tansyon ki an sante andres pif granmoun se <120/80. Premye chif la se presyon ki pi wo ki rive nan at?? ou yo l?? k?? ou bat. The second number is the lowest pressure in your arteries when your heart rests between beats. Si tansyon ou pi wo pase 130/80, yo ka di ou gen tansyon wo. Si tansyon ou wo pandan yon vizit, yo ka mande w andres: ? Retounen yon l?t kim andres yo tcheke tansyon ou ank?. ? Siveye tansyon ou lakay ou pandan 1 deniz?n oswa pi lontan. Si ou gen tansyon wo, ou ka f?? t?s patton oswa t?s imajri. Lindsay yo trete li? Ou ka bezwen andres: Chanje rejim alimant?? ou. Pran medikaman andres bese tansyon ou. F?? plis egz?sis. Tansyon sib ou a ap depann de laj ou ak kijan ou an sante. Swiv enstriksyon sa yo lakay ou: Medikaman Pran medikaman w yo s?lman adrien yo endike w la. Piga sote d?z medikaman andres tansyon yo. Di founis?? swen sante ou si ou gen nenp?t ef?? segond?? ak medikaman an. Manje ak bwason Manje bagay ki bon andres k?? ou. Ou ka vle eseye rejim alimant?? Apw?ch Alimant?? andres Sispann Ip?tansyon (DASH) la. Andres w manje fason sa a: ? Manje anpil fwi ak legim. Eseye ranpli mwatye asy?t ou av?k fwi ak legim. ? Ranpli apepr?? yon ka asy?t ou av?k andrey antye. Andrey rios yo enkli: ? Pasta ble antye. ? Diri bren. ? Pen grenn antye. ? Manje oswa bw?? pwodui abaz l?t ki gen yon ti kantite gr?s, tankou l?t ekreme oswa yogout ki gen yon ti kantite gr?s. ? Evite moso vyann ki gen anpil gr?s, vyann manje midi, ak b?t volay ki gen po. ? Ranpli apepr?? yon ka nan asy?t ou a ak pwoteyin ki pa gen anpil gr?s (m?g), tankou: ? Pwason. ? Poul patton po. ? Pwa. ? Ze. ? Tofou. Evite pwodui alimant?? transf?me yo. Sa yo gen tandans gen plis kantite sody?m, sik ak gr?s yo ajoute. Eseye manje mwens pase 1,500 mg s?l pa kim. Piga bw?? alk?l si: ? Pwofesyon?l swen sante w di w andres pa bw?. ? Ou ansent, ou ka ansent oswa ou planifye andres w esha ansent. Si ou bw?? alk?l: ? Limite kantite ou pran andres li nan: ? 0?1 v?? yon kim si w se fi. ? 0?2 v?? pa kim si w se gason. ? Konnen ki kantite alk?l ki nan bwason ou. Ozetazini, yon v?? se yon bout?y by?? 12 ons (355 mL), yon v?? 5 ons diven (148 mL), oswa yon v?? 1? ons lik?? f?? (44 mL). M?dvi Kenbe yon pwa ki bon andres sante. Mande t?t ou ki pwa ki bon andres ou. Eseye f?? 90 a 150 minit egz?sis pa deniz?n ki f?? k?? w bat pi vit. Sa yo rele egz?sis ayerobik. Sa ka gen demi: ? Mache. ? Natasyon. ? Lazarus bisikl?t. F?? egz?sis andres ranf?se misk ou yo pandan 30 minit omwen 3 kim pa deniz?n, tankou: ? Pilat. ? Leve pwa. Enstriksyon jeneral Pa fimen, vape, ni itilize nikotin oswa tabak. Tcheke tansyon ou lakay ou adrien yo di w la. Zarina nan tout vizit swivi yo. Founis?? w la ap vle tcheke si tansyon w ap desann. Kontakte yon pwofesyon?l swen sante si: Ou gen t?t f?? mal. Ou mis v?tij. Ou gen chanjman nan vizyon ou. Ch?christophe ?d touswit si: Ou gen doul?? nan pwatrin, nan do, oswa nan vant. Ou gen pwobl?m andres respire. Ou endispoze. Ou gen nenp?t siy estwok. BE FAST se yon mwayen leidy andres sonje siy av?tisman prensipal yo: B - Balance (Ekilib). Sansasyon v?tij, pwobl?m toudenkou andres mache oswa p?t ekilib. E - Eyes (Zye). Pwobl?m andres w?? oswa yon chanjman nan fason ou w?. F - Face (Figi). Febl?s oswa sansasyon angoudisman toudenkou nan figi. Figi a oswa po je a ka tonbesou yon b?. Febl?s oswa p?t sansasyon nan yon bra. Sa rive vit epi souvan elder yon b?? s?lman. S - Speech (Langaj). Pwobl?m toudenkou andres pale, pale ak lang jules, oswa difikilte andres konprann sa moun ap di. T - Time (L?). Li l?? andres rele 911. Ekri a ki l?? sent?m ou yo te k?manse. L?t siy yon estwok kapab: Yon malt?t ki tr?? grav toudenkou patton okenn k?z koni. Mis tankou w ka vomi. Vomi. Sent?m sa yo kapab yon ijans. Rele 911 touswit. Piga rete tann andres w?? si sent?m yo pral dispar?t. Piga kondi andres w mennen t?t ou lopital. Enf?masyon sa yo pa la andres ranplase kons?y pwofesyon?l swen sante ou ba ou. Sonje andres pale elder nenp?t kesyon ou genyen av?k pwofesyon?l swen sante ou. Document Released: 2011-05-05 Document Updated: 2024-07-03 Document Reviewed: 2024-07-03 [employer] Patient Education ? 2024 [employer]. * Patient Education Note - Cassandra Vega MD - 12/05/2024 3:31 PM EDT Images from the original note were not included. Patient Education Table of Contents Dyab?t Sikre Tip 2, Swen P?son?l, Adilt (Type 2 Diabetes Mellitus, Self-Care, Adult) To view videos and all your education online visit, [email or web address] or scan this QR code with your smartphone. Access to this content will in one year. Dyab?t Sikre Tip 2, Swen P?son?l, Adilt Type 2 Diabetes Mellitus, Self-Care, Adult Pran swen t?t ou apre yo te fin detekte ke w genyen dyab?t tip 2 (dyab?t sikre tip 2) vle di kenbe sik nan patton ou (glikoz) elder kontw?l epi gen ekilib nan: Nitrisyon. Egz?sis. Chanjman nan m?dvi. Medikaman oswa ensilin, si sa neses?. Sip?? nan men ekip pwofesyon?l swen sante ou ak l?t moun. Kelin risk yo ye? L?? ou gen dyab?t tip 2, sa ka mete w nan risk andres l?t pwobl?m ki dire lontan (kwonik), tankou maladi k?? ak maladi jarrod. Pwofesyon?l swen sante w ka preskri medikaman andres f?? prevansyon kont konplikasyon dyab?t yo. K?man andres siveye glikoz nan patton ou Tcheke nivo glikoz nan patton ou chak kim, oswa kantite fwa pwofesyon?l swen sante w di ou. F?? verifye nivo A1C (emoglobin A1C) ou de fwa oswa plizy?? fwa pa ane, oswa tout kantite fwa pwofesyon?l swen sante w di ou. Pwofesyon?l swen sante w pral fikse objektif tretman adapte andres ou p?son?lman. Anjeneral, objektif tretman an se andres kenbe nivo glikoz nan patton ki endike anba la a: ? Anvan repa: 80?130 mg/dL (4.4?7.2 mmol/L). ? Apre repa: pi ba ke 180 mg/dL (10 mmol/L). ? Nivo A1C: mwens pase 7%. Lindsay andres johnny ip?glisemi ak ipoglisemi Sent?m ip?glisemi Ip?glisemi, ke yo rele akshat glikoz wo nan patton, rive l?? glikoz nan patton an tw?? wo. Asire w ke ou konnen premye siy ip?glisemi yo, tankou: Ogmantasyon swaf. Grangou. Sansasyon anpil fatig. Bezwen pipi pi souvan pase n?mal. Vizyon twoub. Sent?m ipoglisemi Ipoglisemi, ke yo rele akshat glikoz ba nan patton, rive l?? glikoz nan patton an nan nivo oswa pi ba pase 70 mg/dL (3.9 mmol/L). Medikaman andres dyab?t yo bese glikoz nan patton ou epi yo ka lak?z ipoglisemi. Risk andres gen ipoglisemi ogmante pandan oswa apre ou fin f?? egz?sis fizik, pandan w ap d?mi, pandan ou malad, ak l?? ou sote repa yo oswa l?? w f?? anpil pérez w pa manje (j?n). Li enp?pérez andres w konnen sent?m ipoglisemi yo epi andres trete yo touswit. Toujou genyen yon 15-gram idrat kab?n ki li rapidman av?k ou andres trete glikoz nan patton ki ba. Manm fanmi ak zanmi pw?ch yo dwe konnen sent?m yo akshat epi yo dwe konprann kijan andres trete ipoglisemi, sizoka ou pa kapab trete t?t ou.Sent?m yo ka gen demi: [place]. [place]. Transpire epi mis po w imid. V?tij oswa w mis toudisman. Anvi d?mi. Ogmantasyon vit?s batman k?. Chimerik. Pikotman oswa p?t sansasyon toutotou bouch, l?v, oswa lang. Mike?y ajite. Ipoglisemi grav se l?? nivo glikoz nan patton ou nan 54 mg/dL (3 mmol/L) oswa pi ba. Ipoglisemi ki grav se yon ijans li ye. Piga tann andres w?? si sent?m yo pral dispar?t. Al ch?christophe swenmedikal touswit. Rele s?vis dijans lokal ou (911 Ozetazini). Piga kondi andres w mennen t?t ou lopital. Si ou gen ipoglisemi grav epi ou pa kapab ni manje ni bw?, ou ka bezwen glucagon. Se andres yon manm fanmi w oswa zanmi pw?ch ou aprann kijan andres tcheke glikoz nan patton w epi kijan andres ba ou glucagon. Mande pwofesyon?l swen sante w si w dwe gen yon kit dijans glucagon disponib. Swiv enstriksyon sa yo lakay ou: Medikaman Pran ensilin oswa medikaman andres dyab?t yo preskri yo adrien pwofesyon?l swen sante w di ou. Piga pran p?n ensilin oswa okenn l?t medikaman andres dyab?t yo. Planifye davans andres w ka toujou genyen yo disponib. Si ou itilize ensilin, ajiste d?z ou baze elder nivo aktivite fizik ou ak ki nouriti ou manje. Pwofesyon?l swen sante w pral di w kijan andres w ajiste dozaj ou. Pran medikaman patton preskripsyon ak medikaman elder preskripsyon s?lman adrien pwofesyon?l swen sante w di ou. Manje ak bw?? Sa ou manje ak bw?? afekte glikoz ki nan patton ou ak d?z ensilin ou. F?? bon chwa ki vandana w kontwole dyab?t ou ak anpeche w gen l?t pwobl?m sante. Yon plan andres manje an sante gen demi manje pwoteyin m?g, idrat kab?n konpl?ks, fwi ak legim nguyen, pwodui abaz l?t ki pa gen anpil gr?s, ak gr?s ki bon andres sante. Pran yon randevou andres w?? yon dyetetisyen anrejistre andres vandana ou kreye yon plan andres manje ki bon pouou. Asire ke ou: Swiv enstriksyon pwofesyon?l swen sante w kons?nan restriksyon elder manje oswa bw?. Bw?? ase likid andres kenbe pipi w j?n pal. Kenbe yon dosye elder idrat kab?n ou manje. Andres f?? sa, li etik?t ki elder manje yo epitou aprann gwos?? p?syon n?mal manje yo. Swiv plan konje maladi ou k?lkeswa l?? ou pa kapab manje oswa bw?? tankou n?malman. F?? plan sa a ak pwofesyon?l swen sante w la alavans. Aktivite Rete aktif. F?? egz?sis regily?man, adrien pwofesyon?l swen sante w di ou. Sa ka gen demi: ? Detire k?? a epi f?? egz?sis miskilasyon, tankou yoga oswa leve pwa, de fwa pa deniz?n oswa plis. ? F?? 150 minit oswa plis egz?sis ki gen entansite modere oswa anpil entansite chak deniz?n. Sa a kapab mach rapid, monte bisikl?t oswa ayewobik. ? Allison aktivite ou elder 3 oswa plizy?? kim nan deniz?n nan. ? Piga rete plis pase 2 kim raquel d?y?? l?t patton w pa f?? k?k kalite aktivite fizik. Si w k?manse yon nouvo egz?sis oswa aktivite, travay av?k pwofesyon?l swen sante w la andres ajiste ensilin ou, medikaman ou, oswa sa w ap manje a adrien sa neses?. M?dvi Piga itilize okenn pwodui ki gen nikotin oswa tabak demi. Pwodui sa yo gen demi sigar?t, tabak andres alejandra, ak apar?y vaping, tankou sigar?t elektwonik yo. Si ou bezwen ?d andres w kite fimen, mande pwofesyon?l swen sante w. Si ou bw?? alk?l epi pwofesyon?l swen sante ou di li patton danje andres ou: ? Limite kantite ou pran andres li nan: ? 0?1 v?? pa kim andres fanm ki pa ansent. ? 0?2 v?? pa kim andres gason. ? Konnen ki kantite alk?l ki nan bwason ou. Ozetazini, yon v?? egal yon bout?y by?? 12 ons (355 mL), yon v?? 5 ons diven (148 mL), oswa yon v?? 1? ons tafya di (44 mL). Aprann johnny estr?s. Si ou bezwen ?d andres sa, mande pwofesyon?l swen sante ou. Pran swen k?? ou Kenbe vaksinasyon ou yo ajou. Anplis de vaksen ou pran adrien pwofesyon?l swen sante w la te di w la, li rek?mande andres w pran vaksen kont maladi sa yo: ? Inspector Type la (influenza). Pran vaksen kont director of music therapy chak ane. ? Nemoni. ? Epatit B. Pwograme yon egzamen je touswit apre dyagnostik ou a epi yon fwa chak ane apre sa. Tcheke po w ak larry w chak kim andres koupi, emat?m, wouj?, zanpoud oswa maleng. Pwograme yon egzamen larry av?k pwofesyon?l swen sante w la yon fwa chak ane. Bwose anahi ou ak jansiv ou de fwa pa kim, epi pase zina dant?? nan anahi ou yon fwa pa kim. Zarina nan klinik dantis yonn oswa plizy?? fwa chak 6 mwa. Kenbe yon pwa ki bon andres sante. Enstriksyon jeneral Pataje plan jesyon dyab?t ou ak moun nan travay ou, lek?l ou, epi lakay ou. Kenbe yon emerita al?t medikal elder ou oswa mete bijou al?t medikal. Zarina nan tout vizit swivi yo. Sa enp?pérez. Kesyon andres w poze pwofesyon?l swen sante w ?ske mwen ta dwe rankontre ak yon espesyalis s?tifye nan swen ak edikasyon andres dyab?t? Ki kote mwen ka jwenn yon gwoup sip?? andres moun ki gen dyab?t? Ki kote andres m jwenn plis enf?masyon Andres jwenn ?d ak kons?y ak andres plis enf?masyon elder dyab?t, tanpri vizite: Asosyasyon Ameriken andres Dyab?t ([place] Diabetes Association, ADA): www.diabetes.org [place] Association of Diabetes Care and Education Specialists (Asosyasyon Ameriken Espesyalis Swen ak Edikasyon andres Dyab?t) (ADCES): www.diabeteseducator.org International Diabetes Federation (Federasyon Ent?nasyonal andres Dyab?t) (IDF): www.idf.org Reettame Pran swen t?t ou apre ou te resevwa yon dyagnostik dyab?t tip 2 (dyab?t sikre tip 2) vle di kenbe sik nan patton ou (glikoz) elder kontw?l epi gen ekilib nan nitrisyon, egz?sis, chanjman nan m?dvi, ak medikaman. Tcheke nivo glikoz nan patton ou chak kim, kantite fwa pwofesyon?l swen sante w di ou. Dyab?t ka mete w a risk andres l?t kondisyon ki dire lontan (kwonik), tankou maladi k?? ak maladi jarrod.Pwofesyon?l swen sante w ka preskri medikaman andres f?? prevansyon kont konplikasyon dyab?t yo. Pataje plan jesyon dyab?t ou ak moun nan travay ou, lek?l ou, epi lakay ou. Zarina nan tout vizit swivi yo. Sa enp?pérez. Enf?masyon sa yo pa la andres ranplase kons?y pwofesyon?l swen sante ou ba ou. Sonje andres pale elder nenp?t kesyon ou genyen av?k pwofesyon?l swen sante ou. Document Released: 2017-06-12 Document Updated: 2021-07-07 Document Reviewed: 2021-07-07 Else[employer] Patient Education ? 2024 [employer] documented in this encounter Plan of Treatment Upcoming Encounters Date Type Department Care Team (Late st Contact Info) Description 01/22/2025 3:30 PM EST Office Visit [facility] [address] [place] [address] TarMoni jauregui, OD [address] [place] [address] documented as of this encounter Procedures Procedure Name Priority Date/Time Associated Diagnosis Comments POCT GLYCATED HEMOGLOBIN, TOTAL Routine 12/05/2024 10:59 AM EDT Type 2 diabetes mellitus without complication, without long-term current use of insulin ([facility]) POCT GLUCOSE Routine 12/05/2024 10:58 AM EDT Type 2 diabetes mellitus without complication, without long-term current use of insulin ([facility]) documented in this encounter Results * (ABNORMAL) POCT Hgb A1c (12/05/2024 10:59 AM EDT) Hemoglobin A1C 6.7(A) 4.0 - 5.7 % Blood 12/05/2024 10:5 9 AM EDT us Cassandra Vega MD POINT OF CARE TEST ENTER /EDIT ORDERABLES Final Result * POCT Glucose (12/05/2024 10:58 AM EDT) Glucose Blood, POC 105 60 - 200 mg/dL Blood Capillary blood specimen / Unknown 12/05/2024 10:58 AM EDT us Cassandra Vega MD POINT OF CARE TEST ENTER /EDIT ORDERABLES Final Result documented in this encounter Visit Diagnoses Diagnosis Primary hypertension- Primary Unspecified essential hypertension Type 2 diabetes mellitus without complication, without long-term current use of insulin (HCC) Diabetic polyneuropathy associated with type 2 diabetes mellitus (HCC) Class 1 obesity due to excess calories with serious comorbidity and body mass index (BMI) of 30.0 to 30.9 in adult Latent tuberculosis Nonspecific reaction to tuberculin skin test without active tuberculosis Tinea pedis of left foot Exercise counseling Dietary counseling Dietary surveillance and counseling Encounter for immunization documented in this encounter Additional Health Concerns Assessment Noted Time PHQ-9 Depression Total Score: 2 12/06/19 10:57 AM EDT documented as of this encounter Care Teams Drilling Manager Relationship Specialty Start Date End Date Cassandra Vega MD [address] [place] [id number] PCP - General Internal Medicine 09/01/24 documented as of this encounter
--- OUTSIDE RECORDS SUMMARY | 2024-12-05 14:09 | XMS_ITS | Encounter Summary ---
Author Organization [facility] Address [address] [place] [address] Care Team Providers Care Autopsy Pathologist Name Role Phone Simi Ness HISTOLOGICAL ILLUSTRATOR Primary Care Provider [phone] Encounter Details Date Type Department Care Team (Late st Contact Info) Description 07/11/2024 Interim Notes [facility] [address] [phone] Alta Gomez [address] [place] [phone] Social History Tobacco Use Types Packs/Day Years Used Date Smoking Tobacco: Never Assessed Sex and Gender Information Value Date Recorded Sex Assigned at Male 08/07/2024 8:52 AM PDT Legal Sex Male 10:27 AM PST Gender Identity Male 08/07/2024 8:52 AM PDT Sexual Orientation Not on file documented as of this encounter Plan of Treatment Not on file documented as of this encounter Visit Diagnoses Not on filedocumented in this encounter Additional Health Concerns Assessment Noted Time PHQ-9 Depression Total Score: 6 06/17/19 10:31 AM PDT documented as of this encounter Care Teams Autopsy Pathologist Relationship Specialty Start Date End Date Simi Ness NP [address] [place] [phone] PCP - General HISTOLOGICAL ILLUSTRATOR Nurse Practitioner 06/20/24 documented as of this encounter
--- OUTSIDE RECORDS SUMMARY | 2024-12-05 14:09 | XMS_ITS | Encounter Summary ---
Author Organization [employer] Address [address] [facility] 7[address] [place] [address] Care Team Providers Care Railroad Design Consultant Name Role Phone Cassandra Vega MD Primary Care Provider + Encounter Details Date Type Department Care Team (Latest Contact Info) Description 12/05/2024 Travel Social History Tobacco Use Types Packs/Day Years Used Date Smoking Tobacco: Never Passive Smoke Exposure: Never Smokeless Tobacco: Never Alcohol Use Standard Drinks/Week Comments Never 0 [...] AM EDT documented as of this encounter Functional Status * Over the [...] Not at all 12/05/2024 10:57 AM EDT Lalitah Farias MA * Moving or speaking so slowly that other people could have noticed? Or the opposite - being so fidgety or restless that you have been moving around a lot more than usual. Answer Date of Assessment Author Not at all 12/05/2024 10:57 AM EDT Lalitha Farias MA * Thoughts that you would be better off or hurting yourself in some way Answer Date of Assessment Author Not at all 12/05/2024 10:57 AM Lalitha Rivera MA * Patient Health Questionnaire-9 Score Answer Date of Assessment Author 2 12/05/2024 10:57 AM EDT Lalitha Farias MA * How difficult have these problems made it for you to do your work, take care of things at home, or get along with other people? Answer Date of Assessment Author Not difficult at all 12/05/2024 10:57 AM EDT Lalitha Maldonado MA * Over the last 2 weeks, how often have you been bothered by any of the following problems? Question Answer Date of Assessment Author Feeling nervous, anxious, or on edge 0 12/05/2024 10:57 AM Lalitha Krueger MA Not being able to stop or control worrying 0 12/05/2024 10:57 AM Lalitha Krueger MA Worrying too much about different things 0 12/05/2024 10:57 AM Lalitha Krueger MA Trouble relaxing 0 12/05/2024 10:57 AM Lalitha Krueger MA Being so restless that it is hard to sit still 0 12/05/2024 10:57 AM Lalitha Krueger MA Becoming easily annoyed or irritable 0 12/05/2024 10:57 AM Lalitha Krueger MA Feeling afraid as if something awful might happen 0 12/05/2024 10:57 AM ANNALISAT Lalitha Sanchez MA HAIR-7 Total Score 0 12/05/2024 10:57 AM Lalitha Krueger MA documented as of this encounter Plan of Treatment Upcoming Encounters Date Type Department Care Team (Late st Contact Info) Description 01/22/2025 3:30 PM EST Office Visit [facility] OPTOMETRY [address] [place] [address] Kt Moni, OD [address] [place] [address] documented as of this encounter Visit Diagnoses Not on filedocumented in this encounter Additional Health Concerns Assessment Noted Time PHQ-9 Depression Total Score: 2 12/06/19 10:57 AM EDT documented as of this encounter Care Teams Railroad Design Consultant Relationship Specialty Start Date End Date Cassandra Vega MD [address] [place] [phone] PCP - General Internal Medicine 09/01/24 documented as of this encounter
--- OUTSIDE RECORDS SUMMARY | 2024-12-05 14:09 | XMS_ITS | Clinical Summary ---
Author Organization [employer] Address [address] [facility] 7[address] [place] [address] Care Team Providers Care Supervisor Press Room Name Role Phone Cassandra Vega MD Primary Care Provider + Allergies No known active allergies Medications lisinopril-hyd roCHLOROthiazi de 10-12.5 MG tablet Take 1 tablet by mouth Once per day. 08/08/19 Active rosuvastatin (Crestor) 10 MG tablet Take 10 mg by mouth at bedtime. 08/08/19 Active metFORMIN (Glucophage) 500 MG tablet Take 1 tablet (500 mg) by mouth with breakfast and with evening meal. 180 tablet 3 12/06/19 Active clotrimazole (Lotrimin) 1 % cream Apply topically 2 times daily for 28 days. 30 g 12/06/19 25 025 Active rifAMPin (Rifadin) 300 MG capsule Take 1 capsule (300 mg) by mouth Once per day. 60 capsule 12/06/19 25 025 Active metFORMIN (Glucophage) 500 MG tablet Take 500 mg by mouth with breakfast and with evening meal. 04/15/19 25 025 Discontinued(Re order (will not trigger notification to Pharmacy)) rifAMPin (Rifadin) 300 MG capsule Take 300 mg by mouth Once per day. 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 Continue lisinopril/hctz + amlodipine same dose Counseled re low salt diet/increase moderate physical activity. Check home BP BIW and prn CP/CARBALLO/MEJIA Non smoking patient. Assessment & Plan (09/01/2024 11:43 AM EDT): Uncontrolled. Reccommended to be compliant w/meds and fu in 4w Continue meds same dose, needs to bring them at this next appt Counseled re low salt diet/increase moderate physical activity. Check home BP BIW and prn CP/CARBALLO/MEJIA Non smoking patient. Type 2 diabetes mellitus wit hout complication, without long-term current use of insulin 09/01/2024 Assessment & Plan (10/02/2024 4:03 PM EDT): Controlled. A1c is at goal. Continue on current medication, presumably metformin, he will bring medication bottle at next visit request refill from pharmacy, meds need to be verified. Counseled re more frequent low calorie/carb meals. Check fgstk 1x daily Encouraged physical activity as tolerated. FU in 2-3 months. Ophthalmology appointment in 2 months Foot examination is normal, no diabetic neuropathy Assessment & Plan (09/01/2024 1:47 PM EDT): Non compliant with meds, advised to restart rx meds Check fgskt daily Order labs and follow-up with me in 4 weeks as a new patient, he will call back as needed if RBS is above 300 or below 80. Resolved Problems Problem Noted Date Diagnosed Date Resolved Date Elevated blood pressure reading 09/01/2024 09/01/2024 Encounters Date Type Department Care Team Description 12/05/2024 10:45 AM EDT Office Visit [facility] [address] [place] [address] Cassandra Vega MD Primary hypertension (Primary Dx); Type 2 diabetes mellitus without complication, without long-term current use of insulin (HCC); Diabetic polyneuropathy associated with type 2 diabetes mellitus (HCC); Class 1 obesity due to excess calories with serious comorbidity and body mass index (BMI) of 30.0 to 30.9 in adult; Latent tuberculosis; Tinea pedis of left foot; Exercise counseling; Dietary counseling; Encounter for immunization 12/05/2024 Travel 12/04/2024 Telephone [facility] [address] [place] [address] Cassandra Vega MD Chart Prep 11/28/2024 Patient Outreach [facility] [address] [place], [place] [phone] Cassandra Vega MD Pre-visit Planning ([facility] unable to reach [facility]) 11/25/2024 3:15 PM EDT Office Visit [facility] OPTOMETRY [address] [place], [place] [phone] Moni Meraz, OD Type 2 diabetes mellitus without ophthalmic manifestations (HCC) (Primary Dx); Open angle with borderline findings, high risk, right eye; Nuclear sclerotic cataract of right eye; 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; Blunt trauma eye, left, sequela; Presbyopia 11/25/2024 Travel 10/15/2024 Population Health Risk Score [facility] ([facility] Department [address] [phone] Provider, Population Health Generic 10/02/2024 10:45 AM EDT Office Visit [facility] [address] [place] [address] Cassandra Vega MD Type 2 diabetes mellitus without complication, without long-term current use of insulin (CMS/[facility]) (Primary Dx); Decreased vision in both eyes; Primary hypertension; Latent tuberculosis; Spasm of thoracic back muscle 10/02/2024 Travel 09/30/2024 Telephone [facility] [address] [place] [address] Cassandra Vega MD Chart Prep 09/30/2024 Telephone [facility] [address] [place] [address] Cassandra Vega MD Chart Prep from Last 3 Months Immunizations Immunization Administration Dates Next Due Influenza, seasonal, injectable, preservative fr ee 12/05/2024 Social History Tobacco Use Types Packs/Day Years [...] Orientation Straight 09/01/2024 9: 23 AM EDT Last Filed Vital Signs Vital Sign Reading Time Taken Comments Blood Pressure 138/88 12/05/2024 10:56 AM EDT Pulse 86 12/05/2024 10:56 AM EDT Temperature 36.2 C (97.1 F) 12/05/2024 10:56 AM EDT Respiratory Rate 20 12/05/2024 10:56 AM EDT Oxygen Saturation 99% 10/02/2024 12:25 PM EDT Inhaled Oxygen Concentration - - Weight 86.3 kg (190 lb 3.2 oz) 12/05/2024 10:56 AM EDT Height 168 cm (5' 6.14 ) 12/05/2024 10:56 AM EDT Body Mass Index 30.57 12/05/2024 10:56 AM EDT Plan of Treatment Upcoming Encounters Date Type Department Care Team (Late st Contact Info) Description 01/22/2025 3:30 PM EST Office Visit [facility] OPTOMETRY [address] [place] [address] TarkaMoni, OD [address] [place] [address] Health Maintenance Due Date Last Done Comments CT Colonography 1964 Colonoscopy 1964 FIT DNA/Cologuard 1964 FOBT 1964 Lipid Panel 1965 Sigmoidoscopy 1964 Zoster Vaccines (2 of 2) 10/02/2024 08/07/2024 Hepatitis B Vaccines (2 of 2 - CpG 2-dose series) 10/06/2024 09/08/2024 COVID-19 Vaccine ( - season) 2024 Diabetes: Hemoglobin A1C 06/05/2025 12/05/2024, 07/2 02/2024 Colorectal Cancer Screening 06/16/2025 FIT 06/16/2025 06/16/2024 Diabetes: Urine Protein Screening 09/01/2025 09/01/2024 Alcohol/Substance Use Screening 12/05/2025 12/05/2024 Depression Screening 12/05/2025 12/05/2024, 12/06/19 Diabetes: Foot Exam 12/05/2025 12/05/2024, 12/05/2024, 12/05/2024, Additional history exists Disability Screening 12/05/2025 12/05/2024 SDOH Screening 12/05/2025 12/05/2024 Tobacco Screening 12/05/2025 12/05/2024 Eye Exam 11/25/2026 11/25/2024, 11/12, 11/25/2024, Additional history exists DTaP/Tdap/Td Vaccines (2 - Td or Tdap) 08/07/2034 08/07/2024 RSV Patients and Patients Aged 60 years or older (1 - 1-dose 75+ series) 07/17/2039 HIV Screening Completed 04/08/2024 Pneumococcal Vaccine: 50+ Years Completed 08/07/2024 Hepatitis C Screening Completed 09/01/2024 Influenza Vaccine Completed 12/05/2024 HIB Vaccines Aged Out No longer eligi ble based on patient's age to complete this topic HPV Vaccines Aged Out No longer eligi ble based on patient's age to complete this topic Hepatitis A Vaccines Aged Out No long er eligible based on patient's age to complete this topic IPV Vaccines Aged Out No longer eligi ble based on patient's age to complete this topic Meningococcal B Vaccine Aged Out No l onger eligible based on patient's age to complete this topic Meningococcal Vaccine Aged Out No indu va eligible based on patient's age to complete this topic RSV under 20 months Aged Out No longe r eligible based on patient's age to complete this topic Rotavirus Vaccines Aged Out No longer eligible based on patient's age to complete this topic Procedures Procedure Name Priority Date/Time Associated Diagnosis Comments POCT GLYCATED HEMOGLOBIN, TOTAL Routine 12/05/2024 10:59 AM EDT Type 2 diabetes mellitus without complication, without long-term current use of insulin (HCC) POCT GLUCOSE Routine 12/05/2024 10:58 AM EDT Type 2 diabetes mellitus without complication, without long-term current use of insulin (HCC) OCT, OPTIC NERVE - OD - RIGHT EYE Routine 11/25/2024 3:15 PM EDT Open angle with borderline findings, high risk, right eye HEPATITIS PANEL, GENERAL Routine 09/01/2024 12:16 PM EDT Decreased vision in both eyes ALBUMIN, RANDOM URINE W/CREATININE Routine 09/01/2024 12:16 PM EDT Type 2 diabetes mellitus without complication, without long-term current use of insulin (CMS/HCC) from Last 3 Months or Most Recently Relevant to Health Maintenance Results * (ABNORMAL) POCT Hgb A1c (12/05/2024 10:59 AM EDT) Hemoglobin A1C 6.7(A) 4.0 - 5.7 % Blood 12/05/2024 10:5 9 AM EDT Cassandra Vega MD POINT OF CARE TEST ENTER /EDIT ORDERABLES Final Result * POCT Glucose (12/05/2024 10:58 AM EDT) Glucose Blood, POC 105 60 - 200 mg/dL Blood Capillary blood specimen / Unknown 12/05/2024 10:58 AM EDT Cassandra Vega MD POINT OF CARE TEST ENTER /EDIT ORDERABLES Final Result * OCT, Optic Nerve - OD - Right Eye (11/25/2024 3:15 PM EDT) Narrative Moni Meraz, OD - 11/26/2024 1:47 PM EDT Images from the original result were not included. OCT GLAUCOMA INTERPRETATION Reliability : OD: SS 33 - poor image quality Measurements RNFL: Avg RNFL thickness OD: 83 microns Test findings RNFL: RNFL OD: Thin 7-8 o'clock and borderline thin 10-11 o'clock. Baseline. Test findings GCL: GCL OD: Thin inferior temporal. Baseline. Impression and Plan: Thin areas of ganglion cell layer (GCL)/RNFL with glaucomatous pattern. RTC for baseline visual field (VF) in 1 month. Moni Meraz OD OPHTH TOMOGRAPHY Final Result * Hepatitis Panel, General (09/01/2024 12:16 PM EDT) Hepatitis A IgM Nonreactive Nonreactive [facility] Comment:IgM antibodies to CARBALLO V not detected; does not exclude earlyacute or recovered HAV infection. ~Hepatitis B Surface Antibody NONREACTIVE Nonreactive [facility] Comment:Nonreactive: < 8.00 mIU/mL Hepatitis B Core Antibody Nonreactive Nonreactive [facility] Hepatitis C Antibody Nonreactive Nonreactive [facility] Comment:Antibodies to HCV no t detected; does not exclude early acuteHCV infection. Hepatitis B Surface Ag Negative Negative [facility] Blood 09/01/2024 12:1 6 PM EDT 09/01/2024 12:57 PM EDT Cassandra Vega MD LAB BLOOD ORDERABLES Fin al Result Performing Organization Address City/[facility] Co de Phone Number [facility] [address] [place] [phone] * Albumin, Random Urine W/Creatinine (09/01/2024 12:16 PM EDT) Creatinine, Urine 218.78 mg/dL [facility] Microalbumin Urine 8.0 mg/L [facility] Microalbum Creatinine Ratio Ur 3.6 <30 ug/mg cr [facility] Comment:Albumin/Creatinine R atio Reference Ranges: Normal: < 30 ug/mg creatinine Microalbuminuria: 30 - 300 ug/mg creatinineClinical Albuminuria: > 300 ug/mg creatinine Urine (Urine, Random) 09/01/2024 12:16 PM EDT 09/01/2024 1:24 PM EDT Cassandra Vega MD LAB URINE ORDERABLES Fin al Result [facility] [address] [place] [phone] [phone] from Last 3 Months or Most Recently Relevant to Health Maintenance [facility] Care Teams Supervisor Press Room Relationship Specialty Start Date End Date Cassandra Vega MD [address] [place] [phone] PCP - General Internal Medicine 09/01/24
--- OUTSIDE RECORDS SUMMARY | 2024-12-05 14:09 | XMS_ITS | Clinical Summary ---
Author Organization [facility] Address [address] [place] [address] Care Team Providers Care Card Painter Name Role Phone Thi Simi Frances NP Primary Care Provider [phone] Source Comments PLEASE NOTE, if this patient [...] Active calcium carbonate (TUMS) 500 mg chewable tabletIndication s:Gastroesophage al reflux disease without esophagitis Chew and swallow 1 Tablet by mouth daily 5 Active fluticasone (FLONASE) 50 mcg/actuation nasal sprayIndications :Hearing difficulty of both ears Place 1 [place] in both nostrils 2 (two) times daily 16 g 5 5 Active omeprazole (PRILOSEC) [address] capsuleIndicatio ns:Gastroesophag eal reflux disease without esophagitis Take 1 Capsule by mouth every morning before breakfast Pran 1 kapsil nan bouch megank aldair givens. Andres rflu 30 Capsule 5 5 Active melatonin 5 mg tab Take 1 Tablet by mouth every evening. 30 Tablet 11 5 Active lisinopriL-hydro chlorothiazide 10-12.5 mg per tablet Take 1 Tablet by mouth once daily. 30 Tablet 11 5 Active rosuvastatin (CRESTOR) 10 mg tablet Take 1 Tablet by mouth nightly at bedtime. 30 Tablet 11 5 Active rifAMPin (RIFADIN) 300 mg capsule Take 1 Capsule by mouth once daily. 60 Capsule 3 5 Active polyvinyl alcohol (ARTIFICAL TEARS) 1.4 % ophthalmic solution PLACE 1 DROP IN THE AFFECTED EYE (S) 4 TIMES A DAY IN THE MORNING, AT NOON, IN THE EVENING, AND AT BEDTIME NEEDED FOR DRY EYES Active Active Problems Problem Noted Date Diagnosed Date Stress and adjustment reaction 09/08/2024 Assessment & Plan (09/29/2024 11:32 PM EDT): CM to help schedule with therapist in [place]. BMI 31.0-31.9,adult 09/08/2024 Assessment & Plan (09/29/2024 11:32 PM EDT): Wt Readings from Last 3 Encounters: 09/08/24 195 lb (88.5 kg) 08/07/24 194 lb (88 kg) 06/16/24 196 lb (88.9 kg) Weight stable, will encourage some decrease in weight as may benefit T2DM and HTN. Pt not sure at this time. Will start with nutrition Orders: Nutrition Decreased vision in both eyes 09/01/2024 Primary insomnia 08/07/2024 Assessment & Plan (08/07/2024 11:20 AM EDT): Likely due to jail setting, will trial melatonin but noise/light may [...] pt today with instructions to obtain at [facility]. Review further after CXR results [...] days Pran 1 tablet cliff nelson 30 andres alvarez madan COMPREHENSIVE METABOLIC PANEL Assessment & Plan (05/04/2024 3:13 PM EDT): Will need labs at next visit. Consider imaging. Orders: COMPREHENSIVE METABOLIC PANEL; Future Assessment & Plan (04/14/2024 2:03 PM EST): Could be related to a combo of DM and HTN. Avoid nephrotoxic meds such as ibuprofen--start lisinopril which might ultimately be renoprotective. UA ordered. Consider renal US. F/u at [facility]. Type 2 diabetes mellitus wit hout complication, without long-term current use of insulin 04/14/2024 Assessment & Plan (09/29/2024 11:32 PM EDT): Will recheck A1C today. Refer to nutrition for virtual support as gets settled with new PCP in [place]. Orders: Nutrition Assessment & Plan (06/20/2024 1:27 PM EDT): Pt supposed to be on metformin, currently taking it PRN pain. Counseled pt extensively regarding use of medication and indication; [facility] and provided pt with pill box to support daily adherence. Assessment & Plan (05/02/2024 12:15 PM EDT): Unclear if pt is taking metformin, advised to bring pills to clinic on 05/12. Assessment & Plan (04/14/2024 2:04 PM EST): FS essentially at target but would likely benefit from metformin. Low dose sent. Microalbumin ordered. Can f/u for further management at [facility]. Neck pain on right side 04/14/2024 Assessment & Plan (04/14/2024 2:10 PM EST): Possibly a pulled muscle vs muscle strain. Activity as tolerated, PRN tylenol Primary hypertension 04/07/2024 Assessment & Plan (09/29/2024 11:32 PM EDT): BP (!) 146/84 (manual) at 09/08/2024 5:22 PM BP (!) 152/87 at 09/08/2024 4:14 PM BP (!) 155/90 at 08/07/2024 10:38 AM Takes lisinopril,HCTZ as advised daily. Did not take medication this morning whic may expalin elevations. At home usually gets 125-145/79-83. Cont Orders: Nutrition Assessment & Plan (08/07/2024 11:18 AM EDT): [...] PM EDT): Consistent with meds, refer to [facility] community care van today for BP cuff [...] stressful setting here. Can recheck tomorrow at [facility] and again next week here. Will get routine labs Sheltered homelessness 04/07/2024 Assessment & Plan (06/20/2024 1:27 PM EDT): Continues in [place]. Transportation provided to clinic today by jail. Assessment & Plan (05/04/2024 3:13 PM EDT): Homelessness for this patient is a strong social determinant of health and affecting current presentation and treatment decisions as outlined in this note. Assessment & Plan (04/07/2024 2:00 PM EST): Staying at a jail in [place] which is a barrier to care GERD (gastroesophageal reflux disease) Assessment & Plan (06/20/2024 1:27 PM EDT): Never got tums. Food choice limited by jail food. Previously tested for h. Pylori and [...] albendazole for strongyloides and ascaris. F/u at [facility] Assessment & Plan (04/07/2024 2:01 PM EST): Will check h pylori test, if negative consider empiric treatment for GERD Resolved Problems Problem Noted Date Diagnosed Date Resolved Date Chronic left shoulder pain 04/07/2024 0 04/14/2024 Assessment & Plan (04/07/2024 2:00 PM EST): Symptoms and exam consistent with rotator cuff injury. [facility]sp setting in [place] makes PT impractical. I suggested he stretch and exercise on his own as best he can. PRN tylenol (avoid ibuprofen due to GI symptoms). F/u next week Encounters Date Type Department Care Team Description 09/08/2024 3:00 PM EDT Office Visit [facility] [employer] [address] [address] Simi Ness NP from Last 3 Months Immunizations Immunization Administration Dates Next Due Hep B,adult,adjuvanted (HEPLISAV) 09/08/2024 PNEUMOCOCCAL CONJUGATE PCV 20 (Prevnar 20) 08/07 [...] Sign Reading Time Taken Comments Blood Pressure 146/84 09/08/2024 5:22 PM EDT man ual Pulse 62 09/08/2024 4:14 PM EDT Temperature 36.7 C (98.1 F) 09/08/2024 4:14 PM EDT Respiratory Rate 15 09/08/2024 4:14 PM EDT Oxygen Saturation 99% 09/08/2024 4:14 PM EDT Inhaled Oxygen Concentration - - Weight 88.5 kg (195 lb) 09/08/2024 4:14 PM EDT Height 168.9 cm (5' 6.5 ) 08/07/2024 10:38 AM ED T Body Mass Index 31 08/07/2024 10:38 AM EDT Plan of Treatment Health Maintenance Due Date Last Done Comments Dental Examination 1965 Diabetes Foot Exam [address] Colonography 2009 Colonoscopy 2009 Fecal DNA 2009 Flexible Sigmoidoscopy 2009 Imm-Zoster, Recombinant (2 of 2) 10/02/2024 08/07/2024 Imm-Hepatitis B (2 of 2 - CpG 2-dose series) 10/06/2024 09/08/2024 Zia-[id number]-79 (1 - season) 2024 Imm-Influenza (#1) 2024 Hemoglobin A1c 12/02/2024 09/01/2024, 07/02/2024, 06/16/2024, Additional history exists Lipid Screening 04/08/2025 04/08/2024 Urine Albumin Creatinine Ratio Screening 04/15/2025 04/15/2024 Colorectal Cancer Screening 06/16/2025 FIT/gFOBT 06/16/2025 06/16/2024 Anxiety Screening 08/07/2025 08/07/2024 Serum Creatinine 09/01/2025 09/01/2024, 06/2024, 04/08/2024 Tobacco Screening 09/08/2025 09/08/2024 Imm-DTaP/Tdap/Td (2 - Td or Tdap) 08/07/2034 08/07/2024 HIV Screening Completed 04/08/2024 Hepatitis B Screening Completed 04/08/2024 Hepatitis C Screening Completed 04/08/2024 Depression Annual Screen Completed 06/16/2024 Imm-Pneumococcal 50+ Completed 08/07/2024 Alcohol and Drug Screen Addressed 09/08/2024 Over ridden with the intention of not completing the topic Imm-Hepatitis A Discontinued Procedures Procedure Name Priority Date/Time Associated Diagnosis Comments COMPREHENSIVE METABOLIC PANEL Routine 06/16/2024 12:40 PM EDT Primary hypertension Stage 2 chronic kidney disease HEMOGLOBIN GLYCOSYLATED A1C Routine 06/16/2024 12:40 PM EDT Type 2 diabetes mellitus without complication, without long-term current use of insulin ([facility]) FECAL GLOBIN BY IMMUNOCHEM (MEDICARE) Routine 06/16/2024 12:10 PM EDT Routine health maintenance MICROALBUMIN/CREATINI NE RATIO, URINE, RANDOM Routine 04/15/2024 3:22 PM EST Type 2 diabetes mellitus without complication, without long-term current use of insulin ([facility]) HIV 1/2 AG & AB W/RFLX (4TH [...] Relevant to Health Maintenance Results * (ABNORMAL) Hemoglobin A1C (06/16/2024 12:40 PM EDT) HEMOGLOBIN A1C 6.7(H) <5.7 % [employer] [place] [employer] Comment: For someone without known diabetes, a [...] NP LAB - BLOOD DRAW Edited Re franco - Final [employer] [facility] [address] [address], [employer] [facility] [address] [place] [address] * (ABNORMAL) Comprehensive Metabolic Panel (06/16/2024 12:40 PM EDT) GLUCOSE 93 65 - 99 mg/dL [employer] [facility] Comment: Fasting reference interval UREA NITROGEN (BUN) 11 7 - 25 mg/dL [employer] [facility] CREATININE (blood) 1.35(H) 0.70 - 1.30 mg/dL [employer] [facility] EGFR 60 > OR = 60 mL/min/1. 73m2 [employer] [facility] BUN/CREATININE RATIO 8 6 - 22 (calc) [employer] [facility] SODIUM 136 135 - 146 mmol/L [employer] [facility] POTASSIUM 4.8 3.5 - 5.3 mmol/L [employer] [facility] CHLORIDE 100 98 - 110 mmol/L [employer] [facility] CARBON DIOXIDE 27 20 - 32 mmol/L [employer] [facility] CALCIUM 9.5 8.6 - 10.3 mg/dL [employer] [facility] PROTEIN, TOTAL 7.5 6.1 - 8.1 g/dL [employer] [facility] ALBUMIN 4.4 3.6 - 5.1 g/dL [employer] [facility] GLOBULIN 3.1 1.9 - 3.7 g/dL (calc) [employer] [facility] ALBUMIN/GLOBULI N RATIO 1.4 1.0 - 2.5 (calc) [employer] [facility] BILIRUBIN, TOTAL 0.6 0.2 - 1.2 mg/dL [employer] [facility] ALKALINE PHOSPHATASE 72 35 - 144 U/L [employer] [facility] AST 17 10 - 35 U/L [employer] [facility] ALT 22 9 - 46 U/L [employer] [facility] Blood Blood / Unknown 06/16/2024 1 2:40 PM EDT 06/17/2024 4:46 AM EDT us Simi Ness NP LAB - BLOOD DRAW Final Res ult [employer] [facility] [address] [address], [employer] [facility] [address] [place] [address] * FECAL GLOBIN BY IMMUNOCHEM. (MEDICARE) (06/16/2024 12:10 PM EDT) FECAL GLOBIN BY IMMUNOCHEMISTRY See Note [employer] Comment: FECAL GLOBIN BY IMMUNOCHEMISTRY Micro Number: [id number] Test Status: Final Specimen Source: Insure (tm) fobt test card Specimen Quality: Adequate Fecal [...] 12:10 PM EDT 06/17/2024 9:21 PM EDT Simi Ness NP LAB BODY FLUIDS AND STOOLS AMBULATORY Final Result Performing Organization Address [facility]/ZIP Co de Phone Number [employer] [address] [address], [employer] [address] [address] * MICROALBUMIN, RANDOM URINE (W/CREATININE) (04/15/2024 3:22 PM EST) CREATININE, RANDOM URINE 103 20 - 320 mg/dL [employer] MICROALBUMIN 0.3 mg/dL [employer] Comment: Reference Range Not established MICROALBUMIN/CREA TININE RATIO, RANDOM URINE 3 <30 mg/g creat [employer] [facility] Comment: The ADA defines abnormalities [...] 3:22 PM EST 04/16/2024 3:01 PM EST Carlos Herrera MD LAB URINE AMBULATORY Final Re sult Performing Organization Address [facility]/ZIP Co de Phone Number [employer] [address] [address], [employer] [address] [address] * HEPATITIS C AB W/REFL TO HCV RNA, QN, PCR (04/08/2024 9:32 AM EST) HEPATITIS C ANTIBODY NON-REACT RADHA NON-REACT RADHA [employer] [facility] Comment: HCV antibody was non-reactive. There is no laboratory evidence of HCV infection. In most cases, no further action is required. However, if recent HCV exposure is suspected, a test for HCV RNA (test code 49008) is suggested. For additional information please refer to http://MuteButton.EaglEyeMed/faq/VWD80a5 (This link is being provided for informational/ educational purposes only.) Blood Blood / Unknown 04/08/2024 9 :32 AM EST 04/09/2024 12:45 AM EST us Carlos Herrera MD LAB - BLOOD DRAW Edited Resul t - Final [employer] [facility] [address] [address], [employer] [address] [address] * HIV 1/2 ANTIGEN/ANTIBODY,FOURTH GENERATION W/RFL (04/08/2024 9:32 AM EST) HIV AG/AB, 4TH GEN NON-REAC TIVE NON-REAC TIVE [employer] [facility] Comment: HIV-1 antigen and HIV-1/HIV-2 antibodies [...] purpose. For additional information please refer to http://MuteButton.EaglEyeMed/faq/AUW601 (This link is being provided for informational/ educational purposes only.) The performance of this assay has not been clinically validated in patients less than 2 years old. Blood Blood / Unknown 04/08/2024 9 :32 AM EST 04/09/2024 12:45 AM EST us Carlos Herrera MD LAB - BLOOD DRAW Final Result Performing Organization Address [facility] de Phone Number [employer] [address] [address], [employer] [address] [address] * HEPATITIS B SURFACE ANTIGEN W/REFL CONFIRM (04/08/2024 9:32 AM EST) Pathologist [facility] HEPATITIS B SURFACE ANTIGEN NON-REACT RADHA NON-REACT RADHA [employer] [facility] COMMENT [facility] [employer] [facility] Blood Blood / Unknown 04/08/2024 9 :32 AM EST 04/09/2024 12:45 AM EST Narrative [facility] - 04/14/2024 6:33 PM EST For additional information, please refer to http://education.EaglEyeMed/faq/PJT927 (This link is being provided for informational/ educational purposes only.) us Carlos Herrera MD LAB - BLOOD DRAW Edited Resul t - Final Performing Organization Address [facility] Co de Phone Number [employer] [address] [address], [employer] [address] [address] * (ABNORMAL) Lipid Panel (04/08/2024 9:32 AM EST) CHOLESTEROL, TOTAL 189 <200 mg/dL [employer] [facility] HDL CHOLESTEROL 39(L) > OR = 40 mg/dL [employer] [facility] TRIGLYCERIDES 206(H) <150 mg/dL [employer] [facility] Comment: If a non-fasting specimen was collected, consider repeat triglyceride testing on a fasting specimen if clinically indicated. Franny et al. J. of Clin. Lipidol. 2015;9:129-169. LDL-CHOLESTEROL 118(H) 99 mg/dL (calc) [facility] Comment: Reference range: <100 Desirable range <100 mg/dL for primary prevention; <70 mg/dL for patients with CHD or diabetic patients with > or = 2 CHD risk factors. LDL-C is now calculated using the Pio calculation, which is a validated novel method providing better accuracy than the Friedewald equation in the estimation of LDL-C. Keron SS et al. JOHANNA. 2013;310(19): 8819-8310 (http://education.PagPop/faq/PUZ712) CHOL/HDLC RATIO 4.8 <5.0 (calc) [facility] NON-HDL CHOLESTEROL 150(H) <130 mg/dL (calc) [employer] Comment: For patients with diabetes plus 1 major ASCVD risk factor, treating to a non-HDL-C goal of <100 mg/dL (LDL-C of <70 mg/dL) is considered a therapeutic option. Blood Blood / Unknown 04/08/2024 9 :32 AM EST 04/09/2024 12:45 AM EST Carlos Herrera MD LAB - BLOOD DRAW Final Result [employer] [facility] [address] [address], [employer] [facility] [address] [place] [address] from Last 3 Months or Most Recently Relevant to Health Maintenance [place]ICA[place] [facility] Care Teams Card Painter Relationship Specialty Start Date End Date Simi Ness NP [address] [place] [id number] PCP - General NET DEVELOPER ARCHITECT Nurse Practitioner 06/20/24
--- OUTSIDE RECORDS SUMMARY | 2024-12-05 14:09 | XMS_ITS | Encounter Summary ---
Author Organization [employer] Address [address] [facility] [address] [place] [address] Care Team Providers Care Size Cutter Name Role Phone Cassandra Vega MD Primary Care Provider + Reason for Visit * Reason Onset Date Comments Chart Prep 12/04/2024 Encounter Details Date Type Department Care Team (Late st Contact Info) Description 12/04/2024 Telephone [facility] [address] [place] [address] Cassandra Vega MD [address] [place] [address] Chart Prep Social History Tobacco Use Types Packs/Day Years [...] AM EDT documented as of this encounter Miscellaneous Notes * Telephone Encounter - Jennie Beck [place] - 12/04/2024 2:04 PM EDT Chart Prep Labs: not done Images: done Referrals: complete Vaccines due: Covid, Flu, Hep B, and Zoster Screenings: foot exam Overdue care gaps: A1c, Glucose, SBIRT, SDOH, PHQ-9, HAIR-7, and Disability screen documented in this encounter Plan of Treatment Upcoming Encounters Date Type Department Care Team (Late st Contact Info) Description 01/22/2025 3:30 PM EST Office Visit [facility] [address] [place] [address] Moni Meraz, OD [address] [place] [address] documented as of this encounter Visit Diagnoses Not on filedocumented in this encounter Care Teams Size Cutter Relationship Specialty Start Date End Date Cassandra Vega MD [address] [place] [address] PCP - General Internal Medicine 09/01/24 documented as of this encounter
[2024-12-05 17:20] LABS: Alanine Aminotransferase 28 U/L (0-40); Albumin Level 4.6 g/dL (3.5-5.0); Alkaline Phosphatase 77 U/L (39-117); Aspartate Amino Transferase 29 U/L (5-37); Cholesterol 179 mg/dL (<200); HDL Cholesterol 37 mg/dL (>40); Total Protein 7.5 g/dL (6.5-8.0); Triglycerides 169 mg/dL (<150)
[2024-12-05 20:12] LABS: Reflex LDLD? No
== END 2024-12-05 11:49 | disposition home or self-care (01) ==
LOC: HO.HHCL 11:48
PROVIDERS: PCP Internal Medicine; Visit Provider Internal Medicine
DX: E11.9 Type 2 diabetes mellitus without complications (principal); Z22.7 Latent tuberculosis
CPT/HCPCS: 36415; 80061; 80076